=== PATIENT | male | born 2000 | race Caucasian/White ===

== ENCOUNTER 2023-06-05 14:59 | Emergency (ER) | payer OTHER ==
[~2023-06-05] VITALS: Ht 185.4 cm; Wt 56.6 kg
--- NOTE | 2023-06-05 15:28 | ED General ---
General Chief Complaint: Chest Wall Stated Complaint: LT SIDE ABD SPASMS Nursing Triage Note: PT AMB TO [facility] 3 WITH CC OF L LOWER RIBS PAIN X 4 HRS. PT DENIES N/V/D. PT STATES RIB PAIN CAUSES HIM TO FEEL SOA. NO RESP DISTRESS NOTED AT TIME OF TRIAGE Source of Information: Patient Exam Limitations: No Limitations History of Present Illness Date Seen by Provider: Jun 05, 2023 Time Seen by Provider: 15:13 Initial Comments 23-year-old male presents to the ER with complaint of intermittent stabbing pain in his left lower ribs that started couple hours ago while at work. 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 He denies known injury. Denies fevers, abdominal pain, nausea, vomiting, dysuria. Last bowel movement was "a while ago." Patient states he has issues with constipation. Allergies and Home Medications Allergies Coded Allergies: No Known Drug Allergies (Unverified , 06/05/23) Patient Home Medication List Home Medication List Reviewed: Yes Cyclobenzaprine HCl (Cyclobenzaprine HCl) 10 Mg Tablet, 10 MG PO TID Prescribed by: Suki Donaldson on 06/05/23 1620 Review of Systems Review of Systems Constitutional: see HPI Past Aclrssb-Jzqwyr-Gnbllq Hx Patient Social History Tobacco Use?: No Substance use?: No Alcohol Use?: Yes Alcohol Frequency: Once in a while Pt feels they are or have been: No Physical Exam Vital Signs Vital Signs - First Documented 06/05/23 15:12 Temp 36.7 Pulse 91 Resp 16 B/P (MAP) 129/75 (93) Pulse Ox 99 O2 Delivery Room Air Capillary Refill : Less Than 3 Seconds Height, Weight, BMI Height: '" Weight: lbs. oz. kg; 16.00 BMI Method: General Appearance: No Apparent Distress, WD/WN Neck: Normal Inspection, Supple Respiratory: Lungs Clear, Normal Breath Sounds, No Accessory Muscle Use, No Respiratory Distress, Other (Left lower ribs tender to palpation) Cardiovascular: Regular Rate, Rhythm Gastrointestinal: Normal Bowel Sounds, Non Tender, Soft Extremity: Normal Inspection, Normal Range of Motion Neurologic/Psychiatric: Alert, Normal Mood/Affect Skin: Normal Color, Warm/Dry Progress/Results/Core Measures Suspected Sepsis SIRS Temperature: Pulse: 91 Respiratory Rate: 16 Blood Pressure 129 /75 Mean: 93 Results/Orders My Orders Orders - SUKI BROWN APRN Orphenadrine Inj (Ed Only) (Orphenadrine (06/05/23 15:30) Ketorolac Injection (Ketorolac Injection (06/05/23 15:30) Medications Given in ED Current Medications Medications Dose Ordered Sig/Ignacio Route Start Time Stop Time Status Last Admin Dose Admin Ketorolac Tromethamine 15 mg ONCE ONCE IM 06/05/23 15:30 06/05/23 15:31 DC 06/05/23 15:35 15 MG Orphenadrine Citrate 60 mg ONCE ONCE IM 06/05/23 15:30 06/05/23 15:31 DC 06/05/23 15:35 60 MG Vital Signs/I&O 06/05/23 06/05/23 15:12 16:26 Temp 36.7 Pulse 91 91 Resp 16 16 B/P (MAP) 129/75 (93) 109/59 Pulse Ox 99 99 O2 Delivery Room Air Room Air Capillary Refill : Less Than 3 Seconds Blood Pressure Mean: 93 Progress Note : Progress Note Patient seen and evaluated, resting comfortably in bed, no distress. Based on exam and symptoms, this is musculoskeletal pain of the left lower ribs. Abdominal exam benign, no pain with palpation of abdomen. Will treat with Toradol and Norflex. Considered x-ray of left ribs and chest, but deferred due to no known injury and likelihood of rib fracture low. Patient is also not tachycardic, denies shortness of air, is not hypoxic, low chance of spontaneous pneumothorax. 1615 patient informed this provider that he is supposed to get routine colonoscopies due to a hereditary condition that his father has. He states that he has not done this in 11 years. He is curious whether this pain is related to that. He is tender over the ribs, no abdominal pain, I do not think that this is related to his bowels. I will provide the phone numbers to the surgeons for patient to follow-up with in order to schedule his colonoscopy. Discharge instructions and return precautions provided. Departure Impression Primary Impression: Chest wall pain Disposition: 01 HOME, SELF-CARE Condition: Stable Departure-Patient Inst. Decision time for Depature: 16:16 Referrals: ANGELICA GREEN BRETT D DO KIDO, TAKAAKI MD Patient Instructions: Muscle Strain (DC) Add. Discharge Instructions: Take Flexeril up to 3 times a day as needed for pain. It may make you sleepy. Take 800 mg of ibuprofen every 8 hours with food as needed for pain. May also take 1000 mg of Tylenol every 8 hours as needed for pain. Try applying ice to the area for 20 minutes at a time several times a day. I have provided the phone numbers for the surgeons so that you can follow-up with them to schedule your colonoscopy. Return for any new, concerning, or worsening symptoms. All discharge instructions reviewed with patient and/or family. Voiced understanding. Scripts Cyclobenzaprine HCl (Cyclobenzaprine HCl) 10 Mg Tablet 10 MG PO TID, #21 TAB 0 Refills Prov: SUKI BROWN APRN 06/05/23 Work/School Note: Work Release Form Date Seen in the Emergency Department: Jun 05, 2023 Return to Work: Jun 06, 2023 Restrictions: No Restrictions SUKI BROWN APRN Jun 05, 2023 15:28
[2023-06-05] MEDS ORDERED: KETOROLAC INJ 15 MG/ML VIAL IM ONE (15:30)
[2023-06-05] MEDS ORDERED: ORPHENADRINE 60 MG/2 ML AMP (ED ONLY) IM ONE (15:30)
[2023-06-05] MEDS ORDERED: CYCL10TA25 PO (16:20)
[2023-06-05 16:26] VITALS: BP 109/59
== END 2023-06-05 16:26 | disposition home or self-care (01) ==
LOC: ER 15:04
DX: R07.81 Pleurodynia (principal)
CPT/HCPCS: 99284